=== PATIENT | female | born 1990 | race Caucasian/White ===

== ENCOUNTER 2020-09-08 12:41 | Outpatient (NON) | payer OTHER, SELFPAY ==
[2020-09-08 22:07] LABS: SARS-CoV-2 RNA PCR Negative
== END 2020-09-08 12:42 ==
LOC: ANHCOVIDDT 12:43
PROVIDERS: PCP Family Medicine; Visit Provider Family Medicine
DX: Z20.828 Contact with and (suspected) exposure to other viral communicable diseases (principal); R53.83 Other fatigue
CPT/HCPCS: 87635; C9803; U0003

== ENCOUNTER 2020-11-01 09:57 | Outpatient (NON) | payer OTHER, SELFPAY ==
[2020-11-01 19:55] LABS: SARS-CoV-2 RNA PCR Negative
== END 2020-11-01 09:58 ==
LOC: ANHCOVIDDT 09:58
PROVIDERS: PCP Family Medicine; Visit Provider Family Medicine
DX: R68.89 Other general symptoms and signs (principal); Z20.828 Contact with and (suspected) exposure to other viral communicable diseases
CPT/HCPCS: 87635; C9803; U0003